=== PATIENT | female | born 1955 | race Caucasian/White ===

== ENCOUNTER 2023-05-07 09:54 | Inpatient (IN) | payer MEDICARE, OTHER ==
[~2023-05-07] VITALS: Ht 170.2 cm; Wt 63.7 kg
[2023-05-07] MEDS ORDERED: ONDANSETRON HCL INJ 2MG/ML 2ML 2 MG/ML VIAL IV STA (10:29)
[2023-05-07] MEDS ORDERED: FAMOTIDINE 20 MG/2 ML VIAL IV STA (10:29)
[2023-05-07] MEDS ORDERED: LACTATED RINGER'S 1,000 ML INJ ONE (10:30)
[2023-05-07 10:53] LABS: BASOPHILS % 0.4 % (0.0-1.0); EOSINOPHILS # (AUTO) 0.1 (0.0-0.4); EOSINOPHILS % 1.6 % (0.0-6.0); HEMATOCRIT 35.6 % (34.2-44.1); HEMOGLOBIN 12.6 g/dL (12.0-16.0); LYMPHOCYTES # (AUTO) 1.5 (1.0-3.2); LYMPHOCYTES % 21.6 % (18.0-39.1); MEAN CORPUSCULAR HEMOGLOBIN 29.3 pg (28-32); MEAN CORPUSCULAR HGB CONC 35.4 g/dL (31-35); MEAN CORPUSCULAR VOLUME 82.8 fL (81-99); MONOCYTES # (AUTO) 0.4 (0.2-0.8); MONOCYTES % 5.9 % (4.4-11.3); NEUTROPHILS % 70.1 % (38.7-80.0); PLATELET COUNT 225 x10e3/uL (140-360); RED CELL DISTRIBUTION WIDTH 13.7 % (11.7-14.4); WHITE BLOOD COUNT 7.09 x10e3/uL (4.8-10.8)
[2023-05-07 11:02] LABS: INR 0.97; PROTHROMBIN TIME 13.5 seconds (11.9-14.5)
[2023-05-07 11:03] LABS: PARTIAL THROMBOPLASTIN TIME 29.6 seconds (23.8-35.5)
[2023-05-07 11:12] LABS: ALBUMIN 3.3 g/dL (3.5-5.0); ALBUMIN/GLOBULIN RATIO 1.2 (0.8-2.0); ANION GAP 15.8 mmol/L (8-16); CALCIUM 8.5 mg/dL (8.4-10.2); CREATININE, SERUM 0.96 mg/dL (0.57-1.11); POTASSIUM 3.8 mmol/L (3.5-5.1)
[2023-05-07 11:13] LABS: MAGNESIUM 1.5 MG/DL (1.3-2.1)
[2023-05-07] MEDS ORDERED: IOPAMIDOL 370 MG/ML 100 ML INFUS..BTL INJ ONE (11:23)
[2023-05-07 12:32] LABS: CLARITY,URINE CLOUDY (CLEAR); COLOR,URINE YELLOW (YELLOW); KETONES,URINE NEGATIVE (NEGATIVE); LEUKOCYTE ESTERASE ,URINE LARGE (NEGATIVE); NITRITE,URINE NEGATIVE (NEGATIVE); PROTEIN,URINE DIPSTICK NEGATIVE (NEGATIVE)
[2023-05-07 12:33] LABS: URINE UROBILINOGEN 0.2 mg/dL (0.2 - 1)
[2023-05-07 12:45] LABS: BACTERIA,URINE MODERATE /HPF; RBC,URINE 0-5 /HPF (0-5); WBC,URINE (MAN) >50 /HPF (0-5)
[2023-05-07 12:46] LABS: EPITHELIAL CELLS,URINE FEW /LPF
[2023-05-07] MEDS ORDERED: ONDANSETRON HCL INJ 2MG/ML 2ML 2 MG/ML VIAL IV PRN (13:15)
[2023-05-07] MEDS ORDERED: SODIUM CHLORIDE 0.9% 1000ML 1,000 ML IV SCH (13:15)
[2023-05-07] MEDS ORDERED: Morphine 2mg Syringe 2 MG/ML SYR IV PRN (13:15)
[2023-05-07] MEDS: MEROPENEM 1 GM in SODIUM CHLORIDE 0.9% 100 ML IV SCH ×2 (13:47→21:30)
[2023-05-07] MEDS ORDERED: DEXTROSE 50% SYRINGE 50 ML IV ONE (15:30)
[2023-05-07 16:00] VITALS: BP 151/58; PULSE 79; RESP 17; TEMP 98.5; O2SAT 97
[2023-05-07 16:03] VITALS: BP 151/58; PULSE 79; RESP 17; TEMP 98.5; O2SAT 97
[2023-05-07] MEDS ORDERED: CLONIDINE HCL0.1 MG PO (16:35)
[2023-05-07] MEDS ORDERED: MONTELUKAST SOD10 MG PO (16:35)
[2023-05-07] MEDS ORDERED: FEROSUL325 MG PO (16:35)
[2023-05-07] MEDS ORDERED: ONDANSETRON HCL4 MG PO (16:35)
[2023-05-07] MEDS ORDERED: ASPIRIN81 MG PO (16:35)
[2023-05-07] MEDS ORDERED: LEVOCETIRIZINE D5 MG PO (16:35)
[2023-05-07] MEDS ORDERED: CLONIDINE HCL0.1 M1 PO (16:35)
[2023-05-07] MEDS ORDERED: ULTRAM 50MG50 MG PO (16:35)
[2023-05-07] MEDS ORDERED: TYLENOL325 M2 PO (16:35)
[2023-05-07] MEDS ORDERED: SIMVASTATIN20 MG PO (16:35)
[2023-05-07] MEDS ORDERED: DICYCLOMINE HCL20 MG PO (16:35)
[2023-05-07] MEDS ORDERED: SUCRALFATE1 GM PO (16:35)
[2023-05-07] MEDS ORDERED: FOLIC ACID0.4 MG PO (16:35)
[2023-05-07] MEDS ORDERED: FAMOTIDINE40 MG PO (16:35)
[2023-05-07] MEDS ORDERED: CLOPIDOGREL75 MG PO (16:35)
[2023-05-07] MEDS ORDERED: PANTOPRAZOLE SO40 MG PO (16:35)
[2023-05-07] MEDS ORDERED: MUPIROCIN22 GM TOP (16:35)
[2023-05-07] MEDS ORDERED: METOPROLOL TART25 MG PO (16:35)
[2023-05-07] MEDS: DEXTROSE 5%/0.9% SOD CHL 1,000 ML IV SCH (18:56)
[2023-05-07 20:24] VITALS: BP 118/54; PULSE 80; RESP 18; TEMP 98.4; O2SAT 100
[2023-05-07 23:29] VITALS: BP 118/54; PULSE 80; RESP 18; TEMP 98.4; O2SAT 100
[2023-05-08] VITALS (7 sets, daily range): BP systolic 111–174; BP diastolic 53–87; PULSE 76–95; RESP 17–19; TEMP 97.6–98.5; O2SAT 97–100
[2023-05-08] MEDS: METOCLOPRAMIDE HCL 10 MG/2ML VIAL IV SCH ×4 (00:33→17:13)
[2023-05-08] MEDS: MEROPENEM 1 GM in SODIUM CHLORIDE 0.9% 100 ML IV SCH ×3 (06:00→22:00)
[2023-05-08] MEDS: DEXTROSE 5%/0.9% SOD CHL 1,000 ML IV SCH (06:08)
[2023-05-08 06:24] LABS: ALBUMIN 2.2 g/dL (3.5-5.0); ALBUMIN/GLOBULIN RATIO 1.2 (0.8-2.0); ANION GAP 10.4 mmol/L (8-16); CALCIUM 7.6 mg/dL (8.4-10.2); CREATININE, SERUM 0.84 mg/dL (0.57-1.11); POTASSIUM 3.4 mmol/L (3.5-5.1)
[2023-05-08] MEDS: DEXTROSE 50% SYRINGE 50 ML IV PRN ×2 (06:34→10:56)
[2023-05-08] MEDS ORDERED: ACETAMINOPHEN 1000 MG/100 ML IV PRN (11:00)
[2023-05-08 11:08] LABS: BASOPHILS % 0.4 % (0.0-1.0); EOSINOPHILS # (AUTO) 0.1 (0.0-0.4); EOSINOPHILS % 2.6 % (0.0-6.0); HEMATOCRIT 30.2 % (34.2-44.1); HEMOGLOBIN 10.5 g/dL (12.0-16.0); LYMPHOCYTES # (AUTO) 1.2 (1.0-3.2); LYMPHOCYTES % 26.4 % (18.0-39.1); MEAN CORPUSCULAR HEMOGLOBIN 29.3 pg (28-32); MEAN CORPUSCULAR HGB CONC 34.8 g/dL (31-35); MEAN CORPUSCULAR VOLUME 84.4 fL (81-99); MONOCYTES # (AUTO) 0.4 (0.2-0.8); MONOCYTES % 7.4 % (4.4-11.3); PLATELET COUNT 170 x10e3/uL (140-360); RED BLOOD COUNT 3.58 x10e6/uL (3.6-5.1); RED CELL DISTRIBUTION WIDTH 13.9 % (11.7-14.4)
[2023-05-08] MEDS: D5NS/KCL 20MEQ 1,000 ML IV SCH (12:19)
[2023-05-08] MEDS: ENOXAPARIN SOD INJ 40 MG/0.4 ML SYR SC SCH (17:12)
[2023-05-08] MEDS ORDERED: DICYCLOMINE HCL 20 MG TAB PO STA (23:51)
[2023-05-09] VITALS (8 sets, daily range): BP systolic 153–175; BP diastolic 59–77; PULSE 72–105; RESP 16–18; TEMP 97.9–98.8; O2SAT 95–100
[2023-05-09] MEDS: METOCLOPRAMIDE HCL 10 MG/2ML VIAL IV SCH ×4 (00:30→17:40)
[2023-05-09 00:31] LABS: % IRON SATURATION 23 % (15-50); IRON 36 ug/dL (50-170); TOTAL IRON BINDING CAPACITY 155 ug/dL (261-478); TRANSFERRIN 111 mg/dL (180-382)
[2023-05-09] MEDS: D5NS/KCL 20MEQ 1,000 ML IV SCH ×4 (00:31→21:39)
[2023-05-09] MEDS: MEROPENEM 1 GM in SODIUM CHLORIDE 0.9% 100 ML IV SCH ×3 (05:59→21:23)
[2023-05-09 06:10] LABS: BASOPHILS % 0.5 % (0.0-1.0); EOSINOPHILS # (AUTO) 0.3 (0.0-0.4); EOSINOPHILS % 5.7 % (0.0-6.0); HEMATOCRIT 30.2 % (34.2-44.1); HEMOGLOBIN 10.2 g/dL (12.0-16.0); LYMPHOCYTES # (AUTO) 1.3 (1.0-3.2); LYMPHOCYTES % 29.2 % (18.0-39.1); MEAN CORPUSCULAR HEMOGLOBIN 28.7 pg (28-32); MEAN CORPUSCULAR HGB CONC 33.8 g/dL (31-35); MEAN CORPUSCULAR VOLUME 85.1 fL (81-99); MONOCYTES # (AUTO) 0.4 (0.2-0.8); MONOCYTES % 9.6 % (4.4-11.3); NEUTROPHILS # (AUTO) 2.4 (2.1-6.9); NEUTROPHILS % 54.8 % (38.7-80.0); PLATELET COUNT 166 x10e3/uL (140-360); RED BLOOD COUNT 3.55 x10e6/uL (3.6-5.1); WHITE BLOOD COUNT 4.39 x10e3/uL (4.8-10.8)
[2023-05-09 06:29] LABS: ANION GAP 9.5 mmol/L (8-16); CALCIUM 7.4 mg/dL (8.4-10.2); CREATININE, SERUM 0.74 mg/dL (0.57-1.11); POTASSIUM 3.5 mmol/L (3.5-5.1)
[2023-05-09 06:48] LABS: MAGNESIUM 1.4 MG/DL (1.3-2.1)
[2023-05-09 07:06] LABS: PHOSPHORUS 2.9 MG/DL (2.3-4.7)
[2023-05-09] MEDS: DEXTROSE 50% SYRINGE 50 ML IV PRN (07:53)
[2023-05-09] MEDS: DICYCLOMINE HCL 20 MG TAB PO SCH ×4 (07:57→21:23)
[2023-05-09] MEDS ORDERED: MAGNESIUM SULFATE 2GM/50ML IV ONE (09:45)
[2023-05-09] MEDS ORDERED: POTASSIUM CHLORIDE 10MEQ EA PO ONE (10:30)
[2023-05-09] MEDS ORDERED: MAGNESIUM SULFATE 2GM/50ML 50 ML IV ONE (10:30)
[2023-05-09] MEDS: ENOXAPARIN SOD INJ 40 MG/0.4 ML SYR SC SCH (17:40)
[2023-05-10] VITALS (7 sets, daily range): BP systolic 137–176; BP diastolic 51–116; PULSE 72–82; RESP 16–19; TEMP 95.7–98.3; O2SAT 96–100
[2023-05-10] MEDS: METOCLOPRAMIDE HCL 10 MG/2ML VIAL IV SCH ×5 (00:43→23:26)
[2023-05-10] MEDS: CLONIDINE HCL 0.1 MG TAB PO PRN ×2 (00:43→23:35)
[2023-05-10] MEDS: MEROPENEM 1 GM in SODIUM CHLORIDE 0.9% 100 ML IV SCH ×3 (05:38→21:43)
[2023-05-10 06:49] LABS: ANION GAP 9.3 mmol/L (8-16); BLOOD UREA NITROGEN < 5 mg/dL (7-26); CALCIUM 7.4 mg/dL (8.4-10.2); CARBON DIOXIDE 21 mmol/L (22-29); CHLORIDE 113 mmol/L (98-107); CREATININE, SERUM 0.68 mg/dL (0.57-1.11); GLUCOSE 91 mg/dL (74-118); POTASSIUM 4.3 mmol/L (3.5-5.1); SODIUM 139 mmol/L (136-145)
[2023-05-10 06:51] LABS: BUN/CREATININE RATIO 7 (6-25)
[2023-05-10] MEDS: METOPROLOL TARTRATE 25 MG TAB PO SCH ×2 (09:32→17:30)
[2023-05-10] MEDS: DICYCLOMINE HCL 20 MG TAB PO SCH ×4 (09:32→21:44)
[2023-05-10] MEDS: D5NS/KCL 20MEQ 1,000 ML IV SCH ×2 (09:32→23:26)
[2023-05-10] MEDS ORDERED: DIATRIZOATE MEGL/DIATRIZOA SOD 120 ML BTL PO ONE (10:29)
[2023-05-10] MEDS: AMYLAS/CELLU/LIPAS/PROTEA/BILE 12,000 UNIT CAP PO SCH ×2 (11:30→16:30)
[2023-05-10] MEDS: ENOXAPARIN SOD INJ 40 MG/0.4 ML SYR SC SCH (17:30)
[2023-05-10] MEDS ORDERED: FLUCONAZOLE100 MG PO (18:36)
[2023-05-10] MEDS ORDERED: COLESTIPOL HCL1 GM PO (18:36)
[2023-05-10] MEDS ORDERED: METHENAMINE HIPP1 GM (18:36)
[2023-05-10] MEDS ORDERED: OXYBUTYNIN CHLOR5 MG PO (18:36)
[2023-05-11] VITALS (7 sets, daily range): BP systolic 130–155; BP diastolic 55–118; PULSE 63–76; RESP 18–20; TEMP 97.3–98.2; O2SAT 95–100
[2023-05-11] MEDS: MEROPENEM 1 GM in SODIUM CHLORIDE 0.9% 100 ML IV SCH ×3 (05:22→21:04)
[2023-05-11] MEDS: METOCLOPRAMIDE HCL 10 MG/2ML VIAL IV SCH ×4 (05:23→23:22)
[2023-05-11 05:24] LABS: MAGNESIUM 1.7 MG/DL (1.3-2.1); PHOSPHORUS 2.6 MG/DL (2.3-4.7)
[2023-05-11 05:55] LABS: ANION GAP 7.3 mmol/L (8-16); BLOOD UREA NITROGEN < 5 mg/dL (7-26); CALCIUM 7.3 mg/dL (8.4-10.2); CARBON DIOXIDE 21 mmol/L (22-29); CHLORIDE 113 mmol/L (98-107); GLUCOSE 105 mg/dL (74-118); POTASSIUM 4.3 mmol/L (3.5-5.1); SODIUM 137 mmol/L (136-145)
[2023-05-11 06:01] LABS: BUN/CREATININE RATIO 8 (6-25)
[2023-05-11] MEDS ORDERED: SODIUM CHLORIDE 0.9% 100 ML ONE (07:51)
[2023-05-11] MEDS: DICYCLOMINE HCL 20 MG TAB PO SCH ×4 (08:49→21:03)
[2023-05-11] MEDS: AMYLAS/CELLU/LIPAS/PROTEA/BILE 12,000 UNIT CAP PO SCH ×3 (08:54→16:26)
[2023-05-11] MEDS: METOPROLOL TARTRATE 25 MG TAB PO SCH ×2 (08:54→16:28)
[2023-05-11] MEDS: D5NS/KCL 20MEQ 1,000 ML IV SCH ×2 (08:57→21:02)
[2023-05-11] MEDS: IRON SUCROSE 100 MG in SODIUM CHLORIDE 0.9% 100 ML IV SCH (08:57)
[2023-05-11] MEDS ORDERED: ONDANSETRON HCL 4 MG ORAL DISINTEGRATING TAB PO PRN ×2 (09:15)
[2023-05-11] MEDS: ENOXAPARIN SOD INJ 40 MG/0.4 ML SYR SC SCH (17:01)
[2023-05-11] MEDS: CLONIDINE HCL 0.1 MG TAB PO PRN (21:03)
[2023-05-12] VITALS (7 sets, daily range): BP systolic 124–149; BP diastolic 55–92; PULSE 70–78; RESP 16–18; TEMP 97.3–98.5; O2SAT 95–100
[2023-05-12] MEDS: D5NS/KCL 20MEQ 1,000 ML IV SCH (04:12)
[2023-05-12] MEDS: MEROPENEM 1 GM in SODIUM CHLORIDE 0.9% 100 ML IV SCH (05:22)
[2023-05-12] MEDS: METOCLOPRAMIDE HCL 10 MG/2ML VIAL IV SCH (05:22)
[2023-05-12] MEDS: DICYCLOMINE HCL 20 MG TAB PO SCH ×5 (08:17→21:01)
[2023-05-12] MEDS: AMYLAS/CELLU/LIPAS/PROTEA/BILE 12,000 UNIT CAP PO SCH ×3 (08:17→16:44)
[2023-05-12] MEDS: METOPROLOL TARTRATE 25 MG TAB PO SCH ×2 (08:18→16:45)
[2023-05-12] MEDS: IRON SUCROSE 100 MG in SODIUM CHLORIDE 0.9% 100 ML IV SCH (08:35)
[2023-05-12] MEDS ORDERED: ACETAMINOPHEN PO SCH (10:30)
[2023-05-12] MEDS: SUCRALFATE 1 GM TAB PO SCH ×3 (11:57→20:59)
[2023-05-12] MEDS: TRAMADOL HCL 50 MG TAB PO PRN ×2 (12:38→21:00)
[2023-05-12] MEDS: CEPHALEXIN 500 MG CAP PO SCH ×2 (14:26→21:00)
[2023-05-12] MEDS: ENOXAPARIN SOD INJ 40 MG/0.4 ML SYR SC SCH (16:44)
[2023-05-12] MEDS ORDERED: SIMVASTATIN 20 MG TAB PO SCH (21:00)
[2023-05-12] MEDS ORDERED: MONTELUKAST SODIUM 10 MG TAB PO SCH (21:00)
[2023-05-12] MEDS ORDERED: ACETAMINOPHEN 325 MG TAB PO SCH (21:00)
[2023-05-13 00:44] VITALS: BP 145/60; PULSE 79; RESP 18; TEMP 98.3; O2SAT 100
[2023-05-13 04:45] VITALS: BP 135/55; PULSE 72; RESP 18; TEMP 98.2; O2SAT 96
[2023-05-13] MEDS: CEPHALEXIN 500 MG CAP PO SCH (05:55)
[2023-05-13 08:00] VITALS: BP 151/61; PULSE 73; RESP 19; TEMP 98; O2SAT 98
[2023-05-13] MEDS ORDERED: ASPIRIN 81 MG CHEW TAB PO SCH (09:00)
[2023-05-13] MEDS ORDERED: PANTOPRAZOLE SOD 40 MG TABEC PO SCH (09:00)
[2023-05-13] MEDS ORDERED: ACETAMINOPHEN 325 MG TAB PO SCH (09:00)
[2023-05-13] MEDS ORDERED: OXYBUTYNIN CHLORIDE 5 MG TAB PO SCH (09:00)
[2023-05-13] MEDS ORDERED: FOLIC ACID 1 MG TAB PO SCH (09:00)
[2023-05-13] MEDS ORDERED: NON-FORMULARY MEDICATION (Folic Acid* 0.4 MG) PO SCH (09:00)
[2023-05-13] MEDS ORDERED: CLOPIDOGREL BISULFATE 75 MG TAB PO SCH (09:00)
[2023-05-13 09:06] VITALS: BP 165/81; PULSE 71; RESP 19; TEMP 97.8; O2SAT 95
[2023-05-13] MEDS: AMYLAS/CELLU/LIPAS/PROTEA/BILE 12,000 UNIT CAP PO SCH (09:22)
[2023-05-13] MEDS: SUCRALFATE 1 GM TAB PO SCH (09:23)
[2023-05-13] MEDS: DICYCLOMINE HCL 20 MG TAB PO SCH (09:26)
[2023-05-13] MEDS: METOPROLOL TARTRATE 25 MG TAB PO SCH (09:26)
[2023-05-13 12:34] VITALS: BP 151/61; PULSE 73; RESP 19; TEMP 98; O2SAT 98
[2023-05-13] MEDS ORDERED: ZENPEP DR 40,01 EACH PO (13:11)
== END 2023-05-13 13:35 | disposition home or self-care (01) | DRG 390 ==
LOC: ER 10:00 → ERHOLD 13:19 → MED/SURG2 14:22
PROVIDERS: ADMIT Internal Medicine; ATTEND Internal Medicine
DX: K56.50 Intestinal adhesions [bands], unspecified as to partial versus complete obstruction (principal); A08.8 Other specified intestinal infections; E86.0 Dehydration; K52.89 Other specified noninfective gastroenteritis and colitis; K86.81 Exocrine pancreatic insufficiency; M34.1 CR(E)ST syndrome; Z11.52 Encounter for screening for COVID-19; I10 Essential (primary) hypertension; J45.909 Unspecified asthma, uncomplicated; D64.9 Anemia, unspecified; F41.9 Anxiety disorder, unspecified; K21.9 Gastro-esophageal reflux disease without esophagitis; E78.5 Hyperlipidemia, unspecified; E11.51 Type 2 diabetes mellitus with diabetic peripheral angiopathy without gangrene; K22.70 Barrett's esophagus without dysplasia; I45.10 Unspecified right bundle-branch block; E11.649 Type 2 diabetes mellitus with hypoglycemia without coma; Z90.49 Acquired absence of other specified parts of digestive tract; Z87.891 Personal history of nicotine dependence; Z88.0 Allergy status to penicillin; Z88.2 Allergy status to sulfonamides
CPT/HCPCS: 36415; 71045; 74019; 74177; 74250; 80048; 80053; 81001; 82550; 82607; 82746; 82948; 83540; 83630; 83690; 83735; 83993; 84100; 84466; 84484; 85025; 85045; 85610; 85730; 86140; 87040; 87045; 87086; 87177; 87186; 87324; 87449; 93005; 99252; 99284; J1650; J1756; J2185; J2405; J2765; J3475; J7030; J7042; J7050; J7799; Q9967; U0002

== ENCOUNTER 2024-05-24 09:21 | Inpatient (IN) | payer MEDICARE, OTHER ==
[2024-05-24] VITALS (33 sets, daily range): BP systolic 108–151; BP diastolic 49–62; PULSE 106–125; RESP 11–20; TEMP 97.4–99.1; O2SAT 93–100
[~2024-05-24] VITALS: Ht 165.1 cm; Wt 69.4 kg
[~2024-05-24 09:21] MED LIST: ASPIRIN81 MG PO; CLONIDINE HCL0.1 M1 PO; CLONIDINE HCL0.1 MG PO; CLOPIDOGREL75 MG PO; COLESTIPOL HCL1 GM PO; DICYCLOMINE HCL20 MG PO; FAMOTIDINE40 MG PO; FEROSUL325 MG PO; FLUCONAZOLE100 MG PO; FOLIC ACID0.4 MG PO; LEVOCETIRIZINE D5 MG PO; METHENAMINE HIPP1 GM; METOPROLOL TART25 MG PO; MONTELUKAST SOD10 MG PO; MUPIROCIN22 GM TOP; ONDANSETRON HCL4 MG PO; OXYBUTYNIN CHLOR5 MG PO; PANTOPRAZOLE SO40 MG PO; SIMVASTATIN20 MG PO; SUCRALFATE1 GM PO; TYLENOL325 M2 PO; ULTRAM 50MG50 MG PO; ZENPEP DR 40,01 EACH PO
[2024-05-24 10:15] LABS: BASOPHILS % 0.1 % (0.0-1.0); HEMATOCRIT 35.1 % (34.2-44.1); HEMOGLOBIN 10.9 g/dL (12.0-16.0); LYMPHOCYTES # (AUTO) 1.3 (1.0-3.2); LYMPHOCYTES % 8.1 % (18.0-39.1); MEAN CORPUSCULAR HEMOGLOBIN 28.1 pg (28-32); MEAN CORPUSCULAR HGB CONC 31.1 g/dL (31-35); MEAN CORPUSCULAR VOLUME 90.5 fL (81-99); MONOCYTES # (AUTO) 1.2 (0.2-0.8); MONOCYTES % 7.3 % (4.4-11.3); NEUTROPHILS # (AUTO) 13.6 (2.1-6.9); NEUTROPHILS % 83.8 % (38.7-80.0); PLATELET COUNT 358 x10e3/uL (140-360); RED BLOOD COUNT 3.88 x10e6/uL (3.6-5.1); RED CELL DISTRIBUTION WIDTH 15.2 % (11.7-14.4); WHITE BLOOD COUNT 16.25 x10e3/uL (4.8-10.8)
[2024-05-24] MEDS: ONDANSETRON HCL INJ 2MG/ML 2ML 2 MG/ML VIAL IV STA (10:31)
[2024-05-24] MEDS: SODIUM CHLORIDE 0.9% 1000ML 1,000 ML IV STA (10:31)
[2024-05-24 10:34] LABS: ALBUMIN 3.8 g/dL (3.5-5.0); ALBUMIN/GLOBULIN RATIO 1.4 (0.8-2.0); ANION GAP 19.2 mmol/L (8-16); BILIRUBIN,TOTAL 0.6 mg/dL (0.2-1.2); CALCIUM 8.5 mg/dL (8.4-10.2); CREATININE, SERUM 3.28 mg/dL (0.57-1.11); MAGNESIUM 2.3 MG/DL (1.3-2.1); TOTAL PROTEIN 6.6 g/dL (6.5-8.1)
[2024-05-24 10:38] LABS: POTASSIUM 6.2 mmol/L (3.5-5.1)
[2024-05-24 10:39] LABS: INR 1.23; PROTHROMBIN TIME 16.2 seconds (11.9-14.5)
[2024-05-24 10:40] LABS: PARTIAL THROMBOPLASTIN TIME 27.6 seconds (23.8-35.5)
[2024-05-24 10:42] LABS: TROPONIN I 0.026 ng/mL (0-0.300)
[2024-05-24 11:20] LABS: ANION GAP 16.9 mmol/L (8-16); CALCIUM 8.3 mg/dL (8.4-10.2); CREATININE, SERUM 3.24 mg/dL (0.57-1.11)
[2024-05-24 11:21] LABS: POTASSIUM 6.9 mmol/L (3.5-5.1)
[2024-05-24] MEDS: INSULIN REGULAR, HUMAN 100 UNIT/1 ML IV ONE (12:20)
[2024-05-24] MEDS: DEXTROSE 50% SYRINGE 50 ML IV STA (12:21)
[2024-05-24] MEDS: SODIUM CHLORIDE 0.9% 1000ML 1,000 ML IV SCH (12:21)
[2024-05-24] MEDS: CALCIUM GLUC 1 G/50 ML NACL 50 ML IV ONE (12:21)
[2024-05-24] MEDS: MEROPENEM 1 GM in SODIUM CHLORIDE 0.9% 100 ML IV ONE (12:21)
[2024-05-24] MEDS: SODIUM BICARBONATE 8.4% INJ 50 ML SYR IV STA (12:21)
[2024-05-24 12:24] LABS: CLARITY,URINE SL CLOUDY (CLEAR); COLOR,URINE YELLOW (YELLOW); PH,URINE 5 (5 - 7)
[2024-05-24 12:25] LABS: GLUCOSE, URINE NEGATIVE (NEGATIVE); LEUKOCYTE ESTERASE ,URINE SMALL (NEGATIVE); NITRITE,URINE NEGATIVE (NEGATIVE); PROTEIN,URINE DIPSTICK NEGATIVE (NEGATIVE)
[2024-05-24 12:26] LABS: BACTERIA,URINE FEW /HPF; BILIRUBIN,URINE SMALL (NEGATIVE); EPITHELIAL CELLS,URINE FEW /LPF; KETONES,URINE TRACE (NEGATIVE); RBC,URINE 0-5 /HPF (0-5); URINE UROBILINOGEN 0.2 mg/dL (0.2 - 1); WBC,URINE (MAN) 21-50 /HPF (0-5)
[2024-05-24 12:27] LABS: TRANSITIONAL EPI CELLS,URINE FEW
[2024-05-24] MEDS: SODIUM CHLORIDE 0.9% 250ML IRRIG IR SCH (13:15)
[2024-05-24] MEDS: SODIUM BICARBONATE 8.4% VIAL 50 ML in SODIUM CHLORIDE 0.45% 1,000 ML IV SCH (15:32)
[2024-05-24] MEDS: FUROSEMIDE INJ 10 MG/ML 4 ML VIAL IV ONE ×2 (15:33→20:53)
[2024-05-24] MEDS: SOD POLYSTYRENE SULFONATE SUSP 15 GM/60 ML BTL PR ONE (15:47)
[2024-05-24 19:26] LABS: ANION GAP 17.9 mmol/L (8-16); CALCIUM 8.2 mg/dL (8.4-10.2); CREATININE, SERUM 3.25 mg/dL (0.57-1.11)
[2024-05-24 19:30] LABS: POTASSIUM 5.9 mmol/L (3.5-5.1)
[2024-05-24 19:47] LABS: TROPONIN I 0.043 ng/mL (0-0.300)
[2024-05-24] MEDS: CIPROFLOXACIN 200 MG/D5W 100ML 100 ML IV SCH (22:00)
[2024-05-24] MEDS ORDERED: ACETAMINOPHEN 1000 MG/100 ML IV PRN (22:00)
[2024-05-24] MEDS ORDERED: ONDANSETRON HCL INJ 2MG/ML 2ML 2 MG/ML VIAL IV PRN (22:00)
[2024-05-24] MEDS: PROMETHAZINE 12.5MG/ NACL 0.9% 12.5 MG/50 ML BAG IV PRN (22:19)
[2024-05-24] MEDS: METRONIDAZOLE 500MG/NS 100ML 100 ML IV SCH (22:38)
[2024-05-25] VITALS (36 sets, daily range): BP systolic 110–154; BP diastolic 48–107; PULSE 80–126; RESP 11–22; TEMP 97–98.5; O2SAT 16–100
[2024-05-25 09:42] LABS: BASOPHILS % 0.1 % (0.0-1.0); HEMATOCRIT 30.1 % (34.2-44.1); HEMOGLOBIN 9.5 g/dL (12.0-16.0); LYMPHOCYTES # (AUTO) 1.6 (1.0-3.2); LYMPHOCYTES % 12.9 % (18.0-39.1); MEAN CORPUSCULAR HEMOGLOBIN 27.9 pg (28-32); MEAN CORPUSCULAR HGB CONC 31.6 g/dL (31-35); MEAN CORPUSCULAR VOLUME 88.5 fL (81-99); MONOCYTES # (AUTO) 1.4 (0.2-0.8); MONOCYTES % 11.2 % (4.4-11.3); NEUTROPHILS # (AUTO) 9.6 (2.1-6.9); NEUTROPHILS % 75.4 % (38.7-80.0); PLATELET COUNT 281 x10e3/uL (140-360); RED CELL DISTRIBUTION WIDTH 15.3 % (11.7-14.4); WHITE BLOOD COUNT 12.71 x10e3/uL (4.8-10.8)
[2024-05-25 10:06] LABS: ALBUMIN 3.3 g/dL (3.5-5.0); ALBUMIN/GLOBULIN RATIO 1.3 (0.8-2.0); ANION GAP 21.3 mmol/L (8-16); BILIRUBIN,TOTAL 0.4 mg/dL (0.2-1.2); CALCIUM 8.1 mg/dL (8.4-10.2); CREATININE, SERUM 2.9 mg/dL (0.57-1.11); TOTAL PROTEIN 5.8 g/dL (6.5-8.1)
[2024-05-25 10:07] LABS: POTASSIUM 5.3 mmol/L (3.5-5.1)
[2024-05-25 10:13] LABS: TROPONIN I 0.04 ng/mL (0-0.300)
[2024-05-25] MEDS: SODIUM BICARBONATE 8.4% VIAL 50 ML in SODIUM CHLORIDE 0.45% 1,000 ML IV ONE (21:46)
[2024-05-26] VITALS (23 sets, daily range): BP systolic 90–141; BP diastolic 38–94; PULSE 62–111; RESP 11–28; TEMP 97.2–99; O2SAT 12–100
[2024-05-26 06:58] LABS: ANION GAP 15.1 mmol/L (8-16); CALCIUM 7.6 mg/dL (8.4-10.2); CREATININE, SERUM 2.07 mg/dL (0.57-1.11); POTASSIUM 4.1 mmol/L (3.5-5.1)
[2024-05-26 07:09] LABS: % IRON SATURATION 10 % (15-50); IRON 24 ug/dL (50-170); TOTAL IRON BINDING CAPACITY 245 ug/dL (261-478); TRANSFERRIN 175 mg/dL (180-382)
[2024-05-26 08:53] LABS: FOLATE > 40.0 ng/mL (7.0-15.4)
[2024-05-26 09:37] LABS: HEMATOCRIT 23.4 % (34.2-44.1); HEMOGLOBIN 7.5 g/dL (12.0-16.0); LYMPHOCYTES # (AUTO) 1.6 (1.0-3.2); MEAN CORPUSCULAR HEMOGLOBIN 28.3 pg (28-32); MEAN CORPUSCULAR HGB CONC 32.1 g/dL (31-35); MEAN CORPUSCULAR VOLUME 88.3 fL (81-99); MONOCYTES # (AUTO) 1.2 (0.2-0.8); MONOCYTES % 14.3 % (4.4-11.3); NEUTROPHILS # (AUTO) 5.6 (2.1-6.9); NEUTROPHILS % 66.3 % (38.7-80.0); PLATELET COUNT 219 x10e3/uL (140-360); RED BLOOD COUNT 2.65 x10e6/uL (3.6-5.1); RED CELL DISTRIBUTION WIDTH 15.4 % (11.7-14.4); WHITE BLOOD COUNT 8.51 x10e3/uL (4.8-10.8)
[2024-05-26] MEDS ORDERED: AMIODARONE HCL 150 MG/100 ML BAG IV ONE (11:00)
[2024-05-26] MEDS: SODIUM BICARBONATE 8.4% VIAL 50 ML in SODIUM CHLORIDE 0.45% 1,000 ML IV SCH (11:42)
[2024-05-26] MEDS: AMIODARONE HCL 100 ML IV SCH (12:36)
[2024-05-26] MEDS: AMIODARONE 900MG 500 ML IV SCH (12:37)
[2024-05-27] VITALS (32 sets, daily range): BP systolic 77–154; BP diastolic 45–91; PULSE 72–93; RESP 10–20; TEMP 97.2–99.1; O2SAT 99–100
[2024-05-27] MEDS: CYANOCOBALAMIN INJ 1,000 MCG/ML VIAL IM ONE (02:51)
[2024-05-27 06:58] LABS: EOSINOPHILS % 0.3 % (0.0-6.0); LYMPHOCYTES # (AUTO) 1.2 (1.0-3.2); LYMPHOCYTES % 20.4 % (18.0-39.1); MEAN CORPUSCULAR HEMOGLOBIN 28.4 pg (28-32); MEAN CORPUSCULAR VOLUME 88.6 fL (81-99); MONOCYTES # (AUTO) 0.7 (0.2-0.8); MONOCYTES % 12.4 % (4.4-11.3); NEUTROPHILS # (AUTO) 3.9 (2.1-6.9); NEUTROPHILS % 66.7 % (38.7-80.0); PLATELET COUNT 173 x10e3/uL (140-360); RED BLOOD COUNT 2.29 x10e6/uL (3.6-5.1); WHITE BLOOD COUNT 5.89 x10e3/uL (4.8-10.8)
[2024-05-27 07:01] LABS: HEMATOCRIT 20.3 % (34.2-44.1); HEMOGLOBIN 6.5 g/dL (12.0-16.0)
[2024-05-27 07:10] LABS: ANION GAP 12.3 mmol/L (8-16); CALCIUM 7.5 mg/dL (8.4-10.2); CREATININE, SERUM 1.24 mg/dL (0.57-1.11)
[2024-05-27 07:14] LABS: POTASSIUM 3.3 mmol/L (3.5-5.1)
[2024-05-27 07:33] LABS: PHOSPHORUS 3.5 MG/DL (2.3-4.7)
[2024-05-27] MEDS: IRON SUCROSE 100 MG in SODIUM CHLORIDE 0.9% 100 ML IV SCH (07:34)
[2024-05-27] MEDS: Morphine 4mg INJECTION 4 MG/ML INJ IV PRN (07:35)
[2024-05-27 08:02] LABS: EOSINOPHILS % 0.2 % (0.0-6.0); LYMPHOCYTES # (AUTO) 1.2 (1.0-3.2); LYMPHOCYTES % 19.6 % (18.0-39.1); MEAN CORPUSCULAR HEMOGLOBIN 27.9 pg (28-32); MEAN CORPUSCULAR HGB CONC 31.5 g/dL (31-35); MEAN CORPUSCULAR VOLUME 88.7 fL (81-99); MONOCYTES # (AUTO) 0.7 (0.2-0.8); MONOCYTES % 11.6 % (4.4-11.3); NEUTROPHILS # (AUTO) 4.2 (2.1-6.9); NEUTROPHILS % 68.1 % (38.7-80.0); PLATELET COUNT 153 x10e3/uL (140-360); RED BLOOD COUNT 2.22 x10e6/uL (3.6-5.1); RED CELL DISTRIBUTION WIDTH 14.9 % (11.7-14.4); WHITE BLOOD COUNT 6.22 x10e3/uL (4.8-10.8)
[2024-05-27 08:05] LABS: HEMATOCRIT 19.7 % (34.2-44.1); HEMOGLOBIN 6.2 g/dL (12.0-16.0)
[2024-05-27] MEDS: SODIUM CHLORIDE 0.9% 1000ML 1,000 ML IV SCH (14:53)
[2024-05-27] MEDS: POTASSIUM CHLORIDE 20MEQ/100ML 100 ML IV ONE ×2 (16:10→16:28)
[2024-05-27] MEDS: AMIODARONE 900MG 500 ML IV SCH (16:46)
[2024-05-28] VITALS (30 sets, daily range): BP systolic 111–183; BP diastolic 46–113; PULSE 32–116; RESP 9–25; TEMP 97.7–98.8; O2SAT 62–100
[2024-05-28 05:36] LABS: BASOPHILS % 0.2 % (0.0-1.0); EOSINOPHILS # (AUTO) 0.1 (0.0-0.4); EOSINOPHILS % 1.3 % (0.0-6.0); HEMATOCRIT 29.6 % (34.2-44.1); HEMOGLOBIN 9.4 g/dL (12.0-16.0); LYMPHOCYTES # (AUTO) 1.2 (1.0-3.2); LYMPHOCYTES % 20.5 % (18.0-39.1); MEAN CORPUSCULAR HEMOGLOBIN 28.6 pg (28-32); MEAN CORPUSCULAR HGB CONC 31.8 g/dL (31-35); MONOCYTES # (AUTO) 0.6 (0.2-0.8); MONOCYTES % 10.7 % (4.4-11.3); NEUTROPHILS % 66.6 % (38.7-80.0); PLATELET COUNT 150 x10e3/uL (140-360); RED BLOOD COUNT 3.29 x10e6/uL (3.6-5.1); RED CELL DISTRIBUTION WIDTH 14.3 % (11.7-14.4); WHITE BLOOD COUNT 5.96 x10e3/uL (4.8-10.8)
[2024-05-28 05:59] LABS: ANION GAP 12.6 mmol/L (8-16); CALCIUM 7.8 mg/dL (8.4-10.2); CREATININE, SERUM 0.85 mg/dL (0.57-1.11); MAGNESIUM 1.8 MG/DL (1.3-2.1); POTASSIUM 3.6 mmol/L (3.5-5.1)
[2024-05-28] MEDS: CYANOCOBALAMIN INJ 1,000 MCG/ML VIAL IM SCH (08:18)
[2024-05-28] MEDS: MAGNESIUM SULF 1GRAM/DEXTROSE 100 ML IV ONE (09:41)
[2024-05-28] MEDS ORDERED: DIATRIZOATE MEGL/DIATRIZOA SOD 30 ML BTL PO ONE (10:23)
[2024-05-28] MEDS: POTASSIUM CHLORIDE 20MEQ/100ML 100 ML IV ONE (10:54)
[2024-05-28] MEDS: HYDRALAZINE HCL 20 MG/ML VIAL IV PRN (15:35)
[2024-05-29] VITALS (31 sets, daily range): BP systolic 74–155; BP diastolic 43–89; PULSE 66–84; RESP 9–16; TEMP 98–98.9; O2SAT 100
[2024-05-29] MEDS ORDERED: AMIODARONE 900MG 900 MG in Premix Bag 1 BAG IV SCH
[2024-05-29] MEDS: AMIODARONE 900MG 500 ML IV SCH (01:59)
[2024-05-29 06:53] LABS: ANION GAP 13.6 mmol/L (8-16); CALCIUM 7.6 mg/dL (8.4-10.2); CREATININE, SERUM 0.79 mg/dL (0.57-1.11); MAGNESIUM 1.9 MG/DL (1.3-2.1); POTASSIUM 3.6 mmol/L (3.5-5.1)
[2024-05-29] MEDS: LIDOCAINE 4% PATCH TP SCH (16:32)
[2024-05-29] MEDS: DILTIAZEM HCL CR 120MG TAB PO SCH (16:32)
[2024-05-30] VITALS (7 sets, daily range): BP systolic 119–148; BP diastolic 46–96; PULSE 62–88; RESP 16–20; TEMP 97.8–99.6; O2SAT 96–100
[2024-05-30 06:57] LABS: ANION GAP 16.6 mmol/L (8-16); CALCIUM 7.8 mg/dL (8.4-10.2); CREATININE, SERUM 0.73 mg/dL (0.57-1.11); POTASSIUM 3.6 mmol/L (3.5-5.1)
[2024-05-30 08:17] LABS: ENDOMYSIAL ANTIBODIES, IGA Negative (Negative)
[2024-05-30] MEDS ORDERED: ACETAMINOPHEN 325 MG TAB PO PRN (08:30)
[2024-05-30] MEDS ORDERED: ACETAMINOPHEN 1000 MG/100 ML IV PRN (08:30)
[2024-05-30] MEDS: MUPIROCIN 2% OINT 22 GM TUBE TOP SCH (08:33)
[2024-05-30] MEDS: DILTIAZEM HCL ER 120 MG CAP PO SCH (08:44)
[2024-05-30] MEDS: BISACODYL 10 MG SUPP PR ONE (08:56)
[2024-05-30] MEDS: SODIUM CHLORIDE 0.9% 250ML 250 ML IV ONE (08:56)
[2024-05-30] MEDS: DEXTROSE 5%/0.9% SOD CHL 1,000 ML IV SCH (09:30)
[2024-05-30 10:09] LABS: IMMUNOGLOBULIN A 35 mg/dL (87-352); TISSUE TRANSGLUTAMINASE IGA AB <2 U/mL (0-3)
[2024-05-30] MEDS: SODIUM BICARBONATE 8.4% VIAL 50 ML in DEXTROSE 5%/0.45% SOD CHL 1,000 ML IV ONE (17:27)
[2024-05-30] MEDS: BISACODYL 10 MG SUPP PR SCH (21:13)
[2024-05-31 06:37] LABS: ANION GAP 10.4 mmol/L (8-16); CALCIUM 7.6 mg/dL (8.4-10.2); CREATININE, SERUM 0.67 mg/dL (0.57-1.11)
[2024-05-31 06:47] LABS: POTASSIUM 3.4 mmol/L (3.5-5.1)
[2024-05-31 08:26] VITALS: BP 130/63; PULSE 84; RESP 18; TEMP 98; O2SAT 96
[2024-05-31] MEDS: DEXTROSE 5%/0.9% SOD CHL 1,000 ML IV SCH (09:07)
[2024-05-31 11:31] VITALS: BP 148/59; PULSE 87; RESP 19; TEMP 98.4; O2SAT 100
[2024-05-31 16:00] VITALS: BP 135/60; PULSE 81; RESP 19; TEMP 98.2; O2SAT 99
[2024-05-31 17:09] VITALS: BP 135/60; PULSE 81; RESP 19; TEMP 98.2; O2SAT 96
[2024-05-31 20:00] VITALS: BP 135/99; PULSE 82; RESP 18; TEMP 98.5; O2SAT 100
[2024-05-31 21:00] VITALS: BP 139/55; PULSE 84; RESP 18; TEMP 99.5; O2SAT 99
[2024-06-01] VITALS (7 sets, daily range): BP systolic 131–146; BP diastolic 56–90; PULSE 60–93; RESP 18–20; TEMP 97.6–99.4; O2SAT 95–100
[2024-06-01] MEDS: METOCLOPRAMIDE HCL 10 MG/2ML VIAL IV STA (01:15)
[2024-06-01] MEDS: METOCLOPRAMIDE HCL 10 MG/2ML VIAL IV SCH (05:32)
[2024-06-01 11:27] LABS: BASOPHILS % 0.1 % (0.0-1.0); EOSINOPHILS # (AUTO) 0.1 (0.0-0.4); EOSINOPHILS % 1.4 % (0.0-6.0); HEMATOCRIT 27.2 % (34.2-44.1); HEMOGLOBIN 8.5 g/dL (12.0-16.0); LYMPHOCYTES # (AUTO) 0.9 (1.0-3.2); LYMPHOCYTES % 11.9 % (18.0-39.1); MEAN CORPUSCULAR HGB CONC 31.3 g/dL (31-35); MEAN CORPUSCULAR VOLUME 92.8 fL (81-99); MONOCYTES # (AUTO) 0.7 (0.2-0.8); MONOCYTES % 8.8 % (4.4-11.3); NEUTROPHILS % 77.2 % (38.7-80.0); PLATELET COUNT 153 x10e3/uL (140-360); RED BLOOD COUNT 2.93 x10e6/uL (3.6-5.1); RED CELL DISTRIBUTION WIDTH 15.2 % (11.7-14.4); WHITE BLOOD COUNT 7.83 x10e3/uL (4.8-10.8)
[2024-06-01 11:46] LABS: ANION GAP 8.5 mmol/L (8-16); CALCIUM 7.1 mg/dL (8.4-10.2); CREATININE, SERUM 0.71 mg/dL (0.57-1.11); POTASSIUM 3.5 mmol/L (3.5-5.1)
[2024-06-01] MEDS: POTASSIUM CHLORIDE 20 MEQ TAB CR PO ONE (18:40)
[2024-06-02 06:13] LABS: BASOPHILS % 0.1 % (0.0-1.0); EOSINOPHILS # (AUTO) 0.2 (0.0-0.4); EOSINOPHILS % 2.7 % (0.0-6.0); HEMATOCRIT 28.1 % (34.2-44.1); HEMOGLOBIN 8.7 g/dL (12.0-16.0); LYMPHOCYTES # (AUTO) 1.2 (1.0-3.2); LYMPHOCYTES % 14.8 % (18.0-39.1); MEAN CORPUSCULAR HEMOGLOBIN 28.7 pg (28-32); MEAN CORPUSCULAR VOLUME 92.7 fL (81-99); MONOCYTES # (AUTO) 0.8 (0.2-0.8); MONOCYTES % 10.5 % (4.4-11.3); NEUTROPHILS # (AUTO) 5.7 (2.1-6.9); NEUTROPHILS % 71.2 % (38.7-80.0); PLATELET COUNT 159 x10e3/uL (140-360); RED BLOOD COUNT 3.03 x10e6/uL (3.6-5.1); RED CELL DISTRIBUTION WIDTH 15.5 % (11.7-14.4); WHITE BLOOD COUNT 8.03 x10e3/uL (4.8-10.8)
[2024-06-02 06:34] LABS: ANION GAP 9.1 mmol/L (8-16); CALCIUM 7.7 mg/dL (8.4-10.2); CREATININE, SERUM 0.65 mg/dL (0.57-1.11); POTASSIUM 4.1 mmol/L (3.5-5.1)
[2024-06-02 09:10] VITALS: BP 125/52; PULSE 101; RESP 20; TEMP 97.6; O2SAT 100
[2024-06-02] MEDS: IRON-VITAMIN-MINERAL CAPSULE PO SCH (09:17)
[2024-06-02 16:43] VITALS: BP 132/52; PULSE 95; RESP 18; TEMP 98.2; O2SAT 97
[2024-06-02 20:00] VITALS: BP 143/59; PULSE 103; RESP 18; TEMP 99.3; O2SAT 98
[2024-06-02 21:00] VITALS: BP 143/59; PULSE 103; RESP 18; TEMP 99.3; O2SAT 98
[2024-06-03] VITALS: BP 121/53; PULSE 93; RESP 18; TEMP 98.6; O2SAT 97
[2024-06-03 04:00] VITALS: BP 135/57; PULSE 93; RESP 18; TEMP 98.2; O2SAT 99
[2024-06-03] MEDS ORDERED: ONDANSETRON HCL 4 MG ORAL DISINTEGRATING TAB PO PRN (09:45)
[2024-06-03] MEDS ORDERED: ACETAMINOPHEN 325 MG TAB PO PRN (09:45)
[2024-06-03] MEDS ORDERED: HYDRALAZINE HCL 25 MG TAB PO PRN (09:45)
[2024-06-03] MEDS: METOCLOPRAMIDE HCL 10 MG TAB PO SCH (12:10)
[2024-06-03] MEDS: CIPROFLOXACIN 500 MG TAB PO SCH (12:10)
[2024-06-03 12:21] VITALS: BP 129/94; PULSE 101; RESP 17; TEMP 97.3; O2SAT 98
[2024-06-03 16:00] VITALS: BP 125/56; PULSE 98; RESP 22; TEMP 98.7; O2SAT 100
[2024-06-03] MEDS: METOPROLOL TARTRATE 25 MG TAB PO SCH (16:19)
[2024-06-03 20:00] VITALS: BP 127/53; PULSE 80; RESP 18; TEMP 98.8; O2SAT 99
[2024-06-03] MEDS: TRAMADOL HCL 50 MG TAB PO PRN (20:41)
[2024-06-03 21:00] VITALS: BP 127/53; PULSE 80; RESP 18; TEMP 98.8; O2SAT 99
[2024-06-04] VITALS: BP 118/50; PULSE 84; RESP 18; TEMP 98.3; O2SAT 100
[2024-06-04 04:00] VITALS: BP 121/49; PULSE 81; RESP 18; TEMP 98; O2SAT 100
[2024-06-04 05:47] LABS: BASOPHILS % 0.4 % (0.0-1.0); EOSINOPHILS # (AUTO) 0.3 (0.0-0.4); EOSINOPHILS % 3.5 % (0.0-6.0); HEMATOCRIT 27.9 % (34.2-44.1); HEMOGLOBIN 8.6 g/dL (12.0-16.0); LYMPHOCYTES # (AUTO) 1.5 (1.0-3.2); LYMPHOCYTES % 19.9 % (18.0-39.1); MEAN CORPUSCULAR HGB CONC 30.8 g/dL (31-35); MEAN CORPUSCULAR VOLUME 93.9 fL (81-99); MONOCYTES # (AUTO) 0.7 (0.2-0.8); NEUTROPHILS # (AUTO) 5.1 (2.1-6.9); NEUTROPHILS % 66.6 % (38.7-80.0); PLATELET COUNT 169 x10e3/uL (140-360); RED BLOOD COUNT 2.97 x10e6/uL (3.6-5.1); RED CELL DISTRIBUTION WIDTH 15.8 % (11.7-14.4)
[2024-06-04 06:05] LABS: ANION GAP 9.8 mmol/L (8-16); CALCIUM 7.7 mg/dL (8.4-10.2); CREATININE, SERUM 0.66 mg/dL (0.57-1.11); POTASSIUM 4.8 mmol/L (3.5-5.1)
[2024-06-04 06:51] LABS: ABG HCO3 20 mmol/L (22-26); ABG PCO2 38 mmHg (35-45); ABG PH 7.33 (7.35-7.45); ABG PO2 20 mmHg (80-105); ABG TCO2 21
[2024-06-04] MEDS: PANTOPRAZOLE SOD 40 MG TABEC PO SCH (08:59)
[2024-06-04 09:04] VITALS: BP 130/54; PULSE 83; RESP 19; TEMP 98.2; O2SAT 95
[2024-06-04 09:07] VITALS: BP 130/54; PULSE 83; RESP 19; TEMP 98.2; O2SAT 95
[2024-06-04 12:20] VITALS: BP 150/60; PULSE 80; RESP 19; TEMP 98.8; O2SAT 95
[2024-06-11] MEDS ORDERED: ONDANSETRON ODT8 MG PO (01:48)
[2024-06-11] MEDS ORDERED: METOCLOPRAMIDE10 MG PO (01:48)
[2024-06-11] MEDS ORDERED: CIPROFLOXACIN500 MG PO (01:48)
== END 2024-06-04 15:00 | disposition home health service (06) | DRG 388 ==
LOC: ER 09:28 → ERHOLD 12:13 → ICU 14:38 → MED/SURG2 05-29 22:41
PROVIDERS: ADMIT Internal Medicine; ATTEND Internal Medicine
PROC: 02HV33Z Insertion of Infusion Device into Superior Vena Cava, Percutaneous Approach (ICD-10-PCS; principal; 2024-05-25)
PROC: 30233N1 Transfusion of Nonautologous Red Blood Cells into Peripheral Vein, Percutaneous Approach (ICD-10-PCS; 2024-05-27)
DX: K56.601 Complete intestinal obstruction, unspecified as to cause (principal); N17.0 Acute kidney failure with tubular necrosis; D62 Acute posthemorrhagic anemia; E87.20 Acidosis, unspecified; K92.0 Hematemesis; K50.90 Crohn's disease, unspecified, without complications; N39.0 Urinary tract infection, site not specified; K92.1 Melena; E83.51 Hypocalcemia; I48.91 Unspecified atrial fibrillation; E11.9 Type 2 diabetes mellitus without complications; M34.9 Systemic sclerosis, unspecified; E86.0 Dehydration; E83.42 Hypomagnesemia; E87.5 Hyperkalemia; I10 Essential (primary) hypertension; E78.5 Hyperlipidemia, unspecified; N20.0 Calculus of kidney; K21.9 Gastro-esophageal reflux disease without esophagitis; F41.9 Anxiety disorder, unspecified; Z79.01 Long term (current) use of anticoagulants; Z79.02 Long term (current) use of antithrombotics/antiplatelets; Z79.82 Long term (current) use of aspirin; Z95.820 Peripheral vascular angioplasty status with implants and grafts; Z90.49 Acquired absence of other specified parts of digestive tract; Z90.710 Acquired absence of both cervix and uterus; Z88.0 Allergy status to penicillin; Z88.2 Allergy status to sulfonamides; Z88.1 Allergy status to other antibiotic agents; Z88.8 Allergy status to other drugs, medicaments and biological substances; F17.210 Nicotine dependence, cigarettes, uncomplicated
CPT/HCPCS: 36415; 36569; 51700; 71045; 74019; 74022; 74176; 80048; 80053; 81001; 82550; 82607; 82746; 82784; 82805; 82948; 83516; 83540; 83605; 83690; 83735; 84100; 84466; 84484; 85025; 85045; 85610; 85730; 86140; 86256; 86850; 86900; 86920; 87040; 87086; 93005; 93306; 93971; 94799; 99252; 99284; J0360; J0612; J1756; J1940; J2185; J2270; J2405; J2470; J2550; J2765; J3420; J3475; J3480; J7030; J7042; J7050; J7799; P9016; Q9963

== ENCOUNTER 2024-07-22 20:35 | Inpatient (IN) | payer MEDICARE, OTHER ==
[~2024-07-22] VITALS: Ht 175.3 cm; Wt 63.5 kg
[~2024-07-22 20:35] MED LIST changes: +CIPROFLOXACIN500 MG PO; +METOCLOPRAMIDE10 MG PO; +ONDANSETRON ODT8 MG PO
[2024-07-22 21:03] VITALS: TEMP 99.2
[2024-07-22 21:36] LABS: BASOPHILS % 0.3 % (0.0-1.0); EOSINOPHILS # (AUTO) 0.2 (0.0-0.4); EOSINOPHILS % 1.8 % (0.0-6.0); HEMATOCRIT 32.1 % (34.2-44.1); HEMOGLOBIN 9.9 g/dL (12.0-16.0); LYMPHOCYTES # (AUTO) 1.5 (1.0-3.2); LYMPHOCYTES % 15.4 % (18.0-39.1); MEAN CORPUSCULAR HGB CONC 30.8 g/dL (31-35); MEAN CORPUSCULAR VOLUME 90.7 fL (81-99); MONOCYTES # (AUTO) 0.7 (0.2-0.8); MONOCYTES % 7.1 % (4.4-11.3); NEUTROPHILS # (AUTO) 7.2 (2.1-6.9); NEUTROPHILS % 75.2 % (38.7-80.0); PLATELET COUNT 222 x10e3/uL (140-360); RED BLOOD COUNT 3.54 x10e6/uL (3.6-5.1); RED CELL DISTRIBUTION WIDTH 13.7 % (11.7-14.4); WHITE BLOOD COUNT 9.53 x10e3/uL (4.8-10.8)
[2024-07-22] MEDS: ONDANSETRON HCL INJ 2MG/ML 2ML 2 MG/ML VIAL IV STA (21:47)
[2024-07-22] MEDS: SODIUM CHLORIDE 0.9% 1000ML 1,000 ML IV ONE (21:47)
[2024-07-22 21:53] LABS: BILIRUBIN,URINE NEGATIVE (NEGATIVE); CLARITY,URINE CLEAR (CLEAR); COLOR,URINE YELLOW (YELLOW); GLUCOSE, URINE NEGATIVE (NEGATIVE); KETONES,URINE NEGATIVE (NEGATIVE); LEUKOCYTE ESTERASE ,URINE 1+ (NEGATIVE); NITRITE,URINE NEGATIVE (NEGATIVE); PH,URINE 6 (5 - 7); PROTEIN,URINE DIPSTICK NEGATIVE (NEGATIVE); URINE UROBILINOGEN 0.2 mg/dL (0.2 - 1)
[2024-07-22 21:56] LABS: ALBUMIN 2.9 g/dL (3.5-5.0); ALBUMIN/GLOBULIN RATIO 1.3 (0.8-2.0); ANION GAP 15.9 mmol/L (8-16); BILIRUBIN,TOTAL 0.3 mg/dL (0.2-1.2); CALCIUM 8.2 mg/dL (8.4-10.2); CREATININE, SERUM 0.81 mg/dL (0.57-1.11); POTASSIUM 3.9 mmol/L (3.5-5.1); TOTAL PROTEIN 5.2 g/dL (6.5-8.1)
[2024-07-22 22:00] LABS: BACTERIA,URINE MANY /HPF; EPITHELIAL CELLS,URINE MODERATE /LPF; RBC,URINE 21-50 /HPF (0-5)
[2024-07-23] VITALS (13 sets, daily range): BP systolic 104–149; BP diastolic 49–92; PULSE 80–85; RESP 12–18; TEMP 97.6–98.6; O2SAT 99–100
[2024-07-23] MEDS ORDERED: DEXTROSE 50% SYRINGE 50 ML IV PRN (00:45)
[2024-07-23] MEDS ORDERED: IOPAMIDOL 370 MG/ML 100 ML INFUS..BTL INJ ONE (02:23)
[2024-07-23] MEDS: SODIUM CHLORIDE 0.9% 1000ML 1,000 ML IV ONE (03:41)
[2024-07-23] MEDS: LEVOFLOXACIN 500MG/D5W 100ML IV SCH (03:41)
[2024-07-23] MEDS: INSULIN REGULAR, HUMAN 100 UNIT/1 ML SQ SCH (07:30)
[2024-07-23] MEDS ORDERED: HYDRALAZINE HCL 20 MG/ML VIAL IV PRN (10:15)
[2024-07-23] MEDS: SODIUM CHLORIDE 0.9% 1000ML 1,000 ML IV SCH (11:45)
[2024-07-23] MEDS: Morphine 2mg Syringe 2 MG/ML SYR IV PRN (13:00)
[2024-07-23] MEDS: ONDANSETRON HCL INJ 2MG/ML 2ML 2 MG/ML VIAL IV PRN (13:00)
[2024-07-23] MEDS: METRONIDAZOLE 500MG/NS 100ML 100 ML IV SCH (14:02)
[2024-07-23] MEDS: ENOXAPARIN SOD INJ 40 MG/0.4 ML SYR SC SCH (16:56)
[2024-07-23] MEDS ORDERED: MAGNESIUM HYDROXIDE 30 ML UDC PO STA (19:27)
[2024-07-23] MEDS: METOCLOPRAMIDE HCL 10 MG/2ML VIAL IV STA (20:43)
[2024-07-23 21:00] LABS: % IRON SATURATION 17 % (15-50); IRON 42 ug/dL (50-170); TOTAL IRON BINDING CAPACITY 241 ug/dL (261-478); TRANSFERRIN 172 mg/dL (180-382)
[2024-07-24] VITALS (10 sets, daily range): BP systolic 117–157; BP diastolic 48–64; PULSE 71–82; RESP 16–18; TEMP 97.7–98.5; O2SAT 97–100
[2024-07-24] MEDS: METOCLOPRAMIDE HCL 10 MG/2ML VIAL IV SCH ×2 (00:02→11:14)
[2024-07-24] MEDS: ACETAMINOPHEN 325 MG TAB PO PRN (05:20)
[2024-07-24 05:51] LABS: BASOPHILS % 0.4 % (0.0-1.0); EOSINOPHILS # (AUTO) 0.1 (0.0-0.4); EOSINOPHILS % 2.5 % (0.0-6.0); HEMATOCRIT 30.2 % (34.2-44.1); HEMOGLOBIN 9.3 g/dL (12.0-16.0); LYMPHOCYTES # (AUTO) 0.9 (1.0-3.2); LYMPHOCYTES % 16.9 % (18.0-39.1); MEAN CORPUSCULAR HEMOGLOBIN 28.1 pg (28-32); MEAN CORPUSCULAR HGB CONC 30.8 g/dL (31-35); MEAN CORPUSCULAR VOLUME 91.2 fL (81-99); MONOCYTES # (AUTO) 0.4 (0.2-0.8); MONOCYTES % 8.2 % (4.4-11.3); NEUTROPHILS # (AUTO) 3.7 (2.1-6.9); NEUTROPHILS % 71.4 % (38.7-80.0); PLATELET COUNT 188 x10e3/uL (140-360); RED BLOOD COUNT 3.31 x10e6/uL (3.6-5.1); WHITE BLOOD COUNT 5.15 x10e3/uL (4.8-10.8)
[2024-07-24 06:37] LABS: ALBUMIN 2.5 g/dL (3.5-5.0); ALBUMIN/GLOBULIN RATIO 1.2 (0.8-2.0); BILIRUBIN,TOTAL 0.3 mg/dL (0.2-1.2); CALCIUM 8.2 mg/dL (8.4-10.2); CREATININE, SERUM 0.78 mg/dL (0.57-1.11); TOTAL PROTEIN 4.6 g/dL (6.5-8.1)
[2024-07-24] MEDS: IRON SUCROSE 100 MG in SODIUM CHLORIDE 0.9% 100 ML IV SCH (08:25)
[2024-07-24] MEDS ORDERED: CHOLESTYRAMINE P4 GM PO (08:42)
[2024-07-24] MEDS ORDERED: HYDROXYCHLOROQ200 MG PO (08:42)
[2024-07-24] MEDS ORDERED: GABAPENTIN100 MG PO (08:42)
[2024-07-24] MEDS ORDERED: MONTELUKAST SOD10 MG PO (08:43)
[2024-07-24] MEDS ORDERED: DICYCLOMINE HCL20 MG PO (08:45)
[2024-07-24] MEDS ORDERED: CIPROFLOXACIN 500 MG TAB PO SCH (09:00)
[2024-07-24] MEDS ORDERED: BISACODYL 5 MG TAB EC PO PRN (09:30)
[2024-07-24] MEDS ORDERED: MAGNESIUM HYDROXIDE 30 ML UDC PO PRN (09:30)
[2024-07-24] MEDS: SENNA-S TABLET PO SCH (11:13)
[2024-07-24] MEDS: POLYETHYLENE GLYCOL 3350 17 GM PACK PO SCH (11:14)
[2024-07-25] VITALS (9 sets, daily range): BP systolic 154–179; BP diastolic 63–78; PULSE 80–96; RESP 16–20; TEMP 97.5–98.2; O2SAT 98–100
[2024-07-25 10:47] LABS: WBC,FECAL (FECAL LACTOFERRIN) POSITIVE (NEGATIVE)
[2024-07-25 10:50] LABS: CDIFF AG QUIK CHEK **POSITIVE** (NEGATIVE)
[2024-07-25 10:51] LABS: CDIFF TOX QUIK CHEK NEGATIVE (NEGATIVE)
[2024-07-25] MEDS: VANCOMYCIN HCL 125 MG CAPSULE PO SCH (16:43)
[2024-07-25] MEDS: HYDROCODONE/APAP 7.5MG-325MG 1 EA TAB PO PRN (22:40)
[2024-07-26] VITALS: BP 160/66; PULSE 85; RESP 19; TEMP 98; O2SAT 100
[2024-07-26 04:00] VITALS: BP 172/78; PULSE 87; RESP 18; TEMP 98.6; O2SAT 100
[2024-07-26 07:31] VITALS: PULSE 84; RESP 16; O2SAT 97
[2024-07-26 08:32] VITALS: BP 161/64; PULSE 88; RESP 20; TEMP 97.9; O2SAT 95
[2024-07-26 09:00] VITALS: BP 161/64; PULSE 88; RESP 20; TEMP 97.9; O2SAT 95
[2024-07-26] MEDS ORDERED: ONDANSETRON HCL 4 MG ORAL DISINTEGRATING TAB PO PRN (09:15)
[2024-07-26] MEDS ORDERED: METOCLOPRAMIDE HCL 10 MG TAB PO SCH (11:30)
[2024-07-26 11:53] VITALS: BP 182/73; PULSE 85; RESP 19; TEMP 98; O2SAT 100
[2024-07-27] MEDS ORDERED: PANTOPRAZOLE SOD 40 MG TABEC PO SCH (07:30)
== END 2024-07-26 11:32 | DRG 389 ==
LOC: ER 20:42 → ERHOLD 07-23 00:41 → MED/SURG3 07-23 01:40
PROVIDERS: ADMIT Internal Medicine; ATTEND Internal Medicine
DX: K56.600 Partial intestinal obstruction, unspecified as to cause (principal); E44.0 Moderate protein-calorie malnutrition; I50.32 Chronic diastolic (congestive) heart failure; K50.912 Crohn's disease, unspecified, with intestinal obstruction; N39.0 Urinary tract infection, site not specified; M34.1 CR(E)ST syndrome; I11.0 Hypertensive heart disease with heart failure; E11.42 Type 2 diabetes mellitus with diabetic polyneuropathy; E86.0 Dehydration; D64.9 Anemia, unspecified; K59.03 Drug induced constipation; R19.7 Diarrhea, unspecified; R53.81 Other malaise; G89.4 Chronic pain syndrome; R11.0 Nausea; Z68.20 Body mass index [BMI] 20.0-20.9, adult; Z22.1 Carrier of other intestinal infectious diseases; T40.2X5A Adverse effect of other opioids, initial encounter; Z90.710 Acquired absence of both cervix and uterus; Z88.0 Allergy status to penicillin; Z88.2 Allergy status to sulfonamides; Z88.1 Allergy status to other antibiotic agents; Z88.8 Allergy status to other drugs, medicaments and biological substances; Z90.49 Acquired absence of other specified parts of digestive tract; Z87.891 Personal history of nicotine dependence
CPT/HCPCS: 36415; 74018; 74019; 74177; 80053; 81001; 82607; 82746; 82948; 83540; 83630; 83690; 83993; 84466; 85025; 85045; 87045; 87177; 87324; 87449; 94799; 99252; 99285; J0360; J1650; J1756; J1956; J2270; J2405; J2470; J2765; J7030; J7050; Q9967